=== PATIENT | male | born 1945 | race Caucasian/White ===

== ENCOUNTER → 2020-04-25 12:23 | Outpatient (CLI) | payer MEDICARE, BC, SELFPAY ==
--- NOTE | ~2020-04-25 | XR_ITS ---
EXAMINATION: XR lumbar spine 2-3V EXAM DATE: 04/25/2020 12:58 INDICATION: Radiculopathy. Right-sided mid to low back pain 1-2 months, symptoms progressing. TECHNIQUE: Lumber spine frontal, lateral, lateral L5-S1 projections for interpretation. There is no prior study for comparison. FINDINGS: There is moderate lumbar facet arthropathy. Mild diffuse lumbar disc disease. There is 3 m m anterolisthesis L4 on L5. The vertebral bodies are otherwise aligned. Paraspinal soft tissue is unr emarkable. IMPRESSION: 1. Moderate lumbar facet arthropathy. 2. Mild disc disease. Reviewed, dictated and finalized at location A.
--- NOTE | ~2020-04-25 | XR_ITS ---
EXAMINATION: XR thoracic spine 2V EXAM DATE: 04/25/2020 12:58 INDICATION: Right-sided mid to low back pain 1-2 months, symptoms progressing. TECHNIQUE: Frontal and lateral projections of the thoracic spine as well as lateral swimmers projecti on of the upper thoracic spine for interpretation. There is no prior study for comparison. FINDINGS: There is minimal lower thoracic diffuse idiopathic skeletal hyperostosis and mild disc dise ase. Probable mild diffuse thoracic facet arthropathy. No endplate erosive change. The vertebral bodi es are aligned in the AP dimension. Paraspinal soft tissue is unremarkable. IMPRESSION: 1. Mild thoracic spondylosis. 2. Diffuse idiopathic skeletal hyperostosis. Reviewed, dictated and finalized at location A.
== END ==
PROVIDERS: Visit Provider Nurse Practitioner Adult Health
DX: M51.36 Other intervertebral disc degeneration, lumbar region (principal); M47.24 Other spondylosis with radiculopathy, thoracic region
CPT/HCPCS: 72070; 72100

== ENCOUNTER → 2020-05-04 12:51 | Outpatient (CLI) | payer MEDICARE, BC, SELFPAY ==
--- NOTE | ~2020-05-04 | MR_ITS ---
EXAMINATION: MR thoracic spine wo con DATE: 05/04/2020 13:44 INDICATION: Radiculopathy, thoracic region. TECHNIQUE: Magnetic resonance imaging (MRI) of the thoracic spine was performed without intravenous c ontrast. Sagittal localizer T1-weighted FSE of the cervical spine was obtained. Thoracic spine sequen favio included sagittal T2-weighted FSE, sagittal T1-weighted FSE, sagittal STIR FSE, and axial T2-weig hted FSE. COMPARISON: Thoracic spine radiographs 04/25/2020 FINDINGS: Bone alignment is normal. There are Schmorl's nodes at T6-T7, T7-T8, T10-T11, and T11-T12. There is mildly decreased disc height at T4-T5, T5-C6, T6-T7, T8-T9, T9-T10, and T11-T12. At T1-T2, t here is a right central effusion with mild central canal stenosis and ventral indentation of spinal c ord. At T2-T3, there is a right central protrusion with mild central canal stenosis. At T3-T4, the di sc is bulging with mild central canal stenosis. At T5-T6, the disc is bulging with mild central canal stenosis and ventral indentation of spinal cord. At T6-T7, there is a right central protrusion with mild central canal stenosis and ventral indentation of spinal cord. At T9-T10, there is a left centra l extrusion with mild central canal stenosis and ventral indentation of spinal cord. At T10-T11, the disc is bulging with mild central canal stenosis. There is multilevel facet joint osteoarthritis, sev ere bilaterally in upper thoracic spine. There is multilevel mild neural foraminal stenosis bilateral ly. On the right, there is moderate neural foraminal stenosis at T2-T3 and T3-T4. On the left, there is moderate neural foraminal stenosis at T1-T2, T2-T3, T3-T4, T4-T5, and T10-T11. The spinal cord sig nal intensity is normal. IMPRESSION: 1. Moderate thoracic spondylosis. Reviewed, dictated and finalized at location A.
--- NOTE | ~2020-05-04 | MR_ITS ---
EXAMINATION: MR lumbar spine wo [facility] EXAM DATE: 05/04/2020 13:57 INDICATION: Right-sided mid to low back pain, right leg pain, symptoms getting worse. TECHNIQUE: Multi-sequential, multiplanar MR images of the lumbar spine were obtained without contrast . Sagittal T1, T2, T2 fat saturation images. Axial T2 weighted images. There is no prior study for comparison. FINDINGS: There is 3 mm anterolisthesis L4 on L5. There is mild diffuse lumbar disc disease. The conu s medullaris terminates at the L1/2 level and has normal signal intensity and morphology. There are no suspicious marrow signal abnormalities. Paraspinal soft tissue is unremarkable. Level by level evaluation: T12-L1: There is a mild diffuse disc bulge. Facet arthropathy: Mild. Neural foraminal stenosis: No stenosis. Central canal stenosis: No stenosis. L1-L2: There is a mild to moderate diffuse disc bulge. Superimposed small central extrusion, inferio r migration. Facet arthropathy: Mild to moderate. Neural foraminal stenosis: Moderate left, mild right. Central canal stenosis: Mild to moderate. L2-L3: There is a mild to moderate diffuse disc bulge. Facet arthropathy: Mild to moderate. Neural foraminal stenosis: Mild to moderate bilateral. Central canal stenosis: Mild. L3-L4: There is a moderate diffuse disc bulge. Facet arthropathy: Moderate . Ligamentum flavum enlargement. Neural foraminal stenosis: Moderate to severe left, moderate right. Central canal stenosis: Moderate. L4-L5: There is a moderate diffuse disc bulge. Facet arthropathy: Moderate to severe. Neural foraminal stenosis: Mild to moderate bilateral. Central canal stenosis: Mild to moderate. L5-S1: There is a large diffuse disc bulge asymmetric to the right Facet arthropathy: Moderate to severe right, moderate left. Neural foraminal stenosis: Moderate to severe right, moderate left. Central canal stenosis: Mild to moderate, some narrowing of right lateral recess. IMPRESSION: 1. Disc bulges, arthropathy causing multilevel neural foraminal stenosis as detailed above. Reviewed, dictated and finalized at location A. IMPRESSION: 1. Disc bulges, arthropathy causing multilevel neural foraminal stenosis as de tailed above.
== END ==
PROVIDERS: PCP Internal Medicine; Visit Provider Nurse Practitioner Adult Health
DX: M47.24 Other spondylosis with radiculopathy, thoracic region (principal); M51.26 Other intervertebral disc displacement, lumbar region
CPT/HCPCS: 72146; 72148

== ENCOUNTER → 2022-04-01 14:58 | Outpatient (REF) | payer MEDICARE, BC, SELFPAY | LOC: ANHLAB 14:58 | PROVIDERS: PCP Internal Medicine; Visit Provider Nurse Practitioner | DX: C44.319 Basal cell carcinoma of skin of other parts of face (principal) | CPT/HCPCS: 88305 ==

== ENCOUNTER → 2022-05-27 08:19 | Outpatient (REF) | payer MEDICARE, BC, SELFPAY | LOC: ANHLAB 08:19 | PROVIDERS: PCP Internal Medicine; Visit Provider Surgery Plastic and Reconstructive Surgery | DX: C44.319 Basal cell carcinoma of skin of other parts of face (principal) | CPT/HCPCS: 88305; 88331 ==

== ENCOUNTER → 2022-09-04 14:47 | Outpatient (CLI) | payer MEDICARE, BC, SELFPAY ==
--- NOTE | ~2022-09-04 | XR_ITS ---
XR knee RT min 4V 09/04/2022 15:01 Indication: Right knee pain Procedure: 4 views right knee Comparison: No prior studies for comparison. Findings: There is mild patellofemoral compartment osteoarthritis. No fracture or traumatic malalignm ent. No significant joint effusion. No foreign bodies. Impression: 1: Mild patellofemoral compartment osteoarthritis. Reviewed, dictated and finalized at location A. [employer] Impression: 1: Mild patellofemoral compartment osteoarthritis.
== END ==
PROVIDERS: PCP Internal Medicine; Visit Provider Nurse Practitioner Family
DX: M17.11 Unilateral primary osteoarthritis, right knee (principal)
CPT/HCPCS: 73564

== ENCOUNTER → 2022-12-26 12:24 | Outpatient (CLI) | payer MEDICARE, BC, SELFPAY ==
--- NOTE | ~2022-12-26 | MR_ITS ---
MRI of the lumbar spine Clinical History: Radiculopathy Technique: Axial T2-weighted images, and sagittal T1-weighted, T2-weighted, and T2 fat-sat images wer e acquired. COMPARISON: 05/04/2020 Findings: There is no fracture or subluxation of the lumbar spine. Vertebral bodies maintain normal h eight and alignment. No suspicious bone marrow signal abnormality seen. At L1-L2, there is mild disc bulge with facet arthropathy. There is a superimposed central disc extru alex extending inferiorly behind the L2 vertebral body. There is minimal central canal stenosis/theca l sac compression. There is severe left neural foraminal narrowing and mild right neural foraminal na rrowing. At L2-L3, there is left foraminal disc bulge. There is facet arthropathy. No spinal canal stenosis. T here is mild bilateral neural foraminal narrowing. At L3-L4, there is disc bulge and facet arthropathy, which injury to moderate central canal stenosis/ thecal sac compression. There is severe left neural foraminal narrowing and moderate to severe right neural foraminal narrowing. At L4-L5, disc bulge and facet arthropathy are present. There is mild lateral recess stenosis bilater ally. There is minimal left neural foraminal narrowing. Right neural foramen preserved. At L5-S1, there is disc bulge and facet arthropathy. No bia spinal canal stenosis. There is severe right neural foraminal narrowing and mild left neural foraminal narrowing. Paravertebral soft tissues are unremarkable. Impression: Disc extrusion centrally at L1-L2 extending inferiorly, in the L2 vertebral body. There is minimal ce ntral canal stenosis with severe left neural foraminal narrowing and mild right neural foraminal narr owing at this level. L3-L4 level moderate central canal stenosis/thecal sac compression with advanced bilateral neural for aminal narrowing, as detailed above. Severe right neural foraminal narrowing and mild left neural foraminal narrowing at L5-S1. Additional minimal degenerative changes, as above. Reviewed, dictated and finalized at location M. Impression: Disc extrusion centrally at L1-L2 extending inferiorly, in the L2 vertebral bod y. There is minimal central canal stenosis with severe left neural foraminal na rrowing and mild right neural foraminal narrowing at this level. L3-L4 level moderate central canal stenosis/thecal sac compression with advance d bilateral neural foraminal narrowing, as detailed above. Severe right neural foraminal narrowing and mild left neural foraminal narrowin g at L5-S1. Additional minimal degenerative changes, as above.
== END ==
PROVIDERS: PCP Internal Medicine; Visit Provider Nurse Practitioner Family
DX: M54.16 Radiculopathy, lumbar region (principal); M51.26 Other intervertebral disc displacement, lumbar region
CPT/HCPCS: 72148

== ENCOUNTER 2025-02-01 06:59 | Outpatient (CLI) | payer MEDICARE, BC, SELFPAY ==
--- NOTE | ~2025-02-01 | MR_ITS ---
MRI of the lumbar spine Clinical History: Radiculopathy Technique: Axial T2-weighted images, and sagittal T1-weighted, T2-weighted, and T2 fat-sat images wer e acquired. COMPARISON: 12/26/2022 Findings: There is no fracture or subluxation of the lumbar spine. Vertebral bodies maintain normal h eight and alignment. No bone marrow signal abnormality seen. At L1-L2, there is diffuse disc bulge and severe facet arthropathy. Stable superimposed disc extrusio n extending inferiorly, behind the L2 vertebral body in the midline. There is moderate to severe jaja l stenosis and thecal sac compression at this level. There is severe left neural foraminal narrowing, and mild to moderate right neural foraminal narrowing. At L2-L3, there is severe facet arthropathy with mild central canal stenosis but no bia disc bulge or herniation. There is moderate bilateral neural foraminal narrowing. At L3-L4, there is minimal disc bulge with severe facet arthropathy. There is moderate to severe spin al canal stenosis/thecal sac compression. There is moderate to severe left neural foraminal narrowing , and moderate right neural foraminal narrowing. At L4-L5, there is mild disc bulge with severe facet arthropathy. There is minimal central canal sten osis. There is mild bilateral neural foraminal, otherwise. At L5-S1, there is diffuse disc bulge, especially the right paracentral to right foraminal region wit h severe facet arthropathy. No central canal stenosis. There is severe right neural foraminal comprom ise, and moderate left neural foraminal compromise. Paravertebral soft tissues are unremarkable. Impression: Severe degenerative spondylosis throughout the lumbar spine, as detailed above, similar to prior exam . Stable disc extrusion at L1-L2 extending inferiorly, as detailed above. Reviewed, dictated and finalized at location . Impression: Severe degenerative spondylosis throughout the lumbar spine, as detailed above, similar to prior exam. Stable disc extrusion at L1-L2 extending inferiorly, as detailed above.
== END 2025-02-01 07:00 | disposition home or self-care (01) ==
LOC: MICIMG 07:00
PROVIDERS: PCP Internal Medicine; Visit Provider Nurse Practitioner Family
DX: M47.26 Other spondylosis with radiculopathy, lumbar region (principal)
CPT/HCPCS: 72148

== ENCOUNTER 2025-03-01 09:27 | Outpatient (CLI) | payer MEDICARE, BC, SELFPAY ==
--- NOTE | ~2025-03-01 | XR_ITS ---
EXAMINATION: XR chest 2V 03/01/2025 09:42 INDICATION: Chronic cough PROCEDURE: 2 view chest COMPARISON: No prior studies for comparison. FINDINGS: The lungs are clear. The cardiomediastinal silhouette is within normal limits. There are no pleural effusions. There is no pneumothorax suspected. IMPRESSION: 1: NO ACUTE CARDIOPULMONARY DISEASE. Reviewed, dictated and finalized at location A.
== END 2025-03-01 09:28 | disposition home or self-care (01) ==
PROVIDERS: PCP Internal Medicine; Visit Provider Internal Medicine
DX: R05.3 Chronic cough (principal)
CPT/HCPCS: 71046

== ENCOUNTER 2025-08-01 13:43 | Outpatient (CLI) | payer MEDICARE, BC, SELFPAY ==
--- NOTE | ~2025-08-01 | CT_ITS ---
EXAMINATION: CT abdomen pelvis w con DATE: 08/01/2025 14:26 INDICATION: Right abdominal pain for 6 months. TECHNIQUE: Computed tomography (CT) of the abdomen and pelvis was performed with 100 mL Omnipaque 350 intravenous contrast. Automated exposure control and iterative reconstruction technique were employed. The dose-length product was 1125.24 mGy-cm. COMPARISON: None. FINDINGS: The visualized portions of the lung bases demonstrate mild atelectasis. No pleural effusion. The heart size is normal. There are coronary artery calcifications. There are calcifications of the aortic valve. No pericardial effusion. The liver and spleen are normal. The gallbladder is absent. The pancreas, adrenal glands, and kidneys are normal. The prostate is mildly enlarged. The appendix is normal. There are no dilated loops of bowel. There is an umbilical hernia containing fat. There are bilateral inguinal hernias containing fat. There are no pathologically enlarged lymph nodes. There is no free intraperitoneal fluid. There is moderate lumbar spondylosis. There are bridging endplate osteophytes at multiple levels in the thoracic spine, consistent with diffuse idiopathic skeletal hyperostosis (DISH). IMPRESSION: 1. Umbilical hernia containing fat. 2. Bilateral inguinal hernias containing fat. Reviewed, dictated and finalized at location E.
[2025-08-01 14:17] LABS: Estimated Glomerular Filt Rate > 60
== END 2025-08-01 13:44 | disposition home or self-care (01) ==
LOC: MICIMG 13:44
PROVIDERS: PCP Internal Medicine; Visit Provider Internal Medicine
DX: K42.9 Umbilical hernia without obstruction or gangrene (principal); K40.20 Bilateral inguinal hernia, without obstruction or gangrene, not specified as recurrent
CPT/HCPCS: 74177; Q9967